=== PATIENT | female | born 1980 | race Caucasian/White ===

== ENCOUNTER 2022-03-13 11:47 | Emergency (ER) | payer OTHER ==
[2022-03-13] MEDS ORDERED: Lidocaine 1% PF 5 ML VIAL ONE ×2 (12:09→12:10)
[2022-03-13] MEDS ORDERED: Boostrix 0.5 ML (Tdap) VIAL (>/=7 yrs of age) ONE (12:09)
== END 2022-03-13 13:12 | disposition home or self-care (01) ==
LOC: ERS 11:47
DX: S71.112A Laceration without foreign body, left thigh, initial encounter (principal); I10 Essential (primary) hypertension; W26.0XXA Contact with knife, initial encounter; Z23 Encounter for immunization; Z79.899 Other long term (current) drug therapy
CPT/HCPCS: 12002; 90471; 90715